=== PATIENT | female | born 1995 | race African-American/Black ===

== ENCOUNTER 2016-09-05 05:05 | Inpatient (IN) | payer OTHER ==
[2016-09-05] MEDS ORDERED: LACTATED RINGERS SOLUTION 1,000 ML IV STA (06:00)
[2016-09-05] MEDS ORDERED: DEXTROSE 5%-LACTATED RINGERS 1,000 ML IV ONE (06:44)
[2016-09-05 07:03] LABS: BASOPHIL 0.1 % (0-2.0); EOSINOPHIL 0.6 % (0-4.5); MCH 32.4 pg (25.7-33.7); MCHC 33.1 g/dl (32.0-36.0); MEAN CELL VOLUME 97.9 fl (80-96); MEAN PLT VOLUME 10.6 fl (7.5-11.1); NEUTROPHILS 65.6 % (42.8-82.8); PLATELET COUNT 127 K/MM3 (134-434); RDW 14.2 % (11.6-15.6); WHITE BLOOD COUNT 7.3 K/mm3 (4.0-10.0)
[2016-09-05 07:16] LABS: INR 0.95 (0.82-1.09); PROTHROMBIN TIME (PATIENT) 10.4 SEC (9.98-11.88)
--- NOTE | 2016-09-05 07:32 | HP ---
Past Medical History - Admission Chief Complaint: Contraction pain. History of Present Illness: 20 y/o with SIUP at 39.5 weeks gestation here with complaints of labor pains since 4:30 am. Pt denies VB/LOF. +FM. uncomplicated. HIV neg , GBS neg, RPR neg, HepB neg, Rubella immune. Pt initially 1cm dilated, now 3- 4cm/90%effaced and head at -1 station. 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 Weeks Gestation by Dates: 39.5 ...EDC by Dates: 09/07/16 Heme/Onc: No: Anemia, Bleeding Disorder Infectious Disease: No: HIV, MRSA, STD's Psych: No: Anxiety, Bipolar, Depression Musculoskeletal: No: Chronic low back pain Endocrine: No: Yoni's Disease, Hyperthyroidism - Past Surgical History Past Surgical History: Yes: None Hx Myomectomy: No Hx Transabdominal Cerclage: No - Smoking History Smoking history: Never smoked Have you smoked in the past 12 months: No - Alcohol/Substance Use History of Substance Use: reports: None - Social History Usual Living Arrangement: Yes: With Significant Other ADL: Independent History of Recent Travel: No Home Medications - Allergies Allergies/Adverse Reactions: Allergies Allergy/AdvReac Type Severity Reaction Status Date / Time No Known Allergies Allergy Verified 09/05/16 06:01 - Home Medications Home Medications: Ambulatory Orders Vitamins (Sjr) - 1 tab PO DAILY 09/05/16 Review of Systems - Review of Systems Constitutional: reports: No Symptoms Eyes: reports: No Symptoms HENT: reports: No Symptoms Neck: reports: No Symptoms Cardiovascular: reports: No Symptoms Respiratory: reports: No Symptoms Gastrointestinal: reports: No Symptoms Genitourinary: reports: No Symptoms Breasts: reports: No Symptoms Reported Musculoskeletal: reports: No Symptoms Integumentary: reports: No Symptoms Neurological: reports: No Symptoms Endocrine: reports: No Symptoms Hematology/Lymphatic: reports: No Symptoms Psychiatric: reports: No Symptoms Physical Exam - Maternity Vital Signs: Vital Signs Temperature 97.7 F 09/05/16 06:12 Pulse Rate 83 09/05/16 06:12 Respiratory Rate 20 09/05/16 06:12 Blood Pressure 137/80 09/05/16 06:12 O2 Sat by Pulse Oximetry (%) Constitutional: Yes: Well Nourished, No Distress, Calm Eyes: Yes: Conjunctiva Clear, EOM Intact HENT: Yes: Atraumatic, Normocephalic Neck: Yes: Supple, Trachea Midline Cardiovascular: Yes: Regular Rate and Rhythm Lungs: Clear to auscultation - Abdominal Exam/OB Number of Fetuses: Single Presentation: Vertex Contractions: Yes Regularity: Regular Intensity: Mod/Strong Monitor Mode: External Heart Rate (range): 160 Category: I Accelerations: Uniform Decelerations: None - Vaginal Exam/OB Vaginal Bleediing: No Dilatation (cm): 3.5 Effacement (%): 90 Amniotic Membrane Status: Intact Presentation: Vertex/Position Station: -1 - Physical Exam Extremities: Yes: WNL Edema: No Psychiatric: Yes: Alert, Oriented Hemorrhage Risk Assessment - Risk Factors Medium Risk Factors: Yes: None High Risk Factors: Yes: None Risk Score: 1 Risk Level: Medium Risk Problem List - Problems (1) Active labor at term Code(s): [id number] - (2) Term Code(s): Z34.80 - ENCOUNTER FOR SUPRVSN OF NORMAL , UNSP TRIMESTER Assessment/Plan 20 y/o with SIUP at 39.5 weeks, in active labor - AFVSS - FHTS cat 1 - active labor, pt desires pain medication - for epidural - expectant management - to start pitocin if contrations space - GBS negative
[2016-09-05 07:41] LABS: CALCIUM 8.8 mg/dL (8.5-10.1); CREATININE 0.7 mg/dL (0.55-1.02)
[2016-09-05 08:01] VITALS: BMI 25.0
[2016-09-05] MEDS ORDERED: FENTANYL/BUPIVACAINE/NS/PF - PCEA - 50 ML DISP.SYRIN EP SCH (08:15)
[2016-09-05] MEDS ORDERED: LACTATED RINGERS SOLUTION 1,000 ML IV SCH (08:15)
[2016-09-05] MEDS ORDERED: OXYTOCIN 15 UNITS/ LR 250 ML 250 ML IV SCH (09:15)
--- NOTE | 2016-09-05 09:26 | PN ---
Ante-Partal Exam - Subjective Subjective: Pt tolerating contractions, feels much improved with epidural. Vital Signs: Vital Signs Temperature 98.0 F 09/05/16 08:00 Pulse Rate 75 09/05/16 08:15 Respiratory Rate 15 09/05/16 08:15 Blood Pressure 117/63 09/05/16 08:15 O2 Sat by Pulse Oximetry (%) 100 09/05/16 08:15 Bleeding: No Headache: No Visual changes: No Right upper quadrant pain: No Pain (scale 1-10): 3 - Contractions Contractions: Yes Regularity: Regular Intensity: Mod/Strong Monitor Mode: External - Exam during Labor Heart Rate: 155 Variability: Moderate Category: I Monitor Accelerations: Absent Monitor Decelerations: None Exam: Vaginal Dilatation (cm): 6 Effacement (%): 90 Amniotic Membrane Status: Ruptured (AROM for light meconium) Amniotic Fluid: Meconium Stained Meconium Staining: Light Presentation: Vertex Station: 0 - Intrapartum Hemorrhage Risk Medium Risk Factors: None High Risk Factors: None Risk Score: 0 Risk Level: Low Risk - Assessment/Plan Assessment/Plan: 20 y/o with SIUP at 39.5, in labor - FHTS cat 1 - labor, s/p epidural and now s/p AROM, to augment with pitocin if contractions space - GBS negative - anticipate
--- NOTE | 2016-09-05 10:48 | PN ---
Ante-Partal Exam - Subjective Vital Signs: Vital Signs Temperature 98.0 F 09/05/16 08:00 Pulse Rate 78 09/05/16 10:30 Respiratory Rate 14 09/05/16 10:30 Blood Pressure 118/60 09/05/16 10:30 O2 Sat by Pulse Oximetry (%) 99 09/05/16 10:30 Bleeding: Yes Bleeding Description: Mild Headache: No Visual changes: No Right upper quadrant pain: No Pain (scale 1-10): 2 - Contractions Contractions: Yes Regularity: Regular Intensity: Strong Monitor Mode: External - Exam during Labor Variability: Moderate Category: II Monitor Accelerations: Present Monitor Decelerations: Variable Exam: Vaginal Dilatation (cm): 9 Effacement (%): 100 Amniotic Membrane Status: Ruptured Presentation: Vertex Station: 0 - Assessment/Plan Assessment/Plan: Pt doing well, feeling better s/p epidural top off. FHTS cat 2 with variable decelerations. Pt to begin pushing in 30 minutes. anticipate
--- NOTE | 2016-09-05 11:30 | PN ---
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 Gender: Male Position: Left, OA - 1 Minute Total Score: 9 5 Minutes Total Score: 9 - Feeding Plan Initial Plan: Exclusive throughout hospitalization Remarks - Remarks Remarks: normal of baby boy from MIHIR position loose nuchal cord noted - reduced at perineum anterior shoulder (right) delivered with ease along with remainder of 3VC noted, clamped and cut baby assessed by nursery staff, Apgars 9/9 - mouth and nose bulb suctioned after delivery 1st degree laceration noted - repaired with 2-0 chromic suture in usual fashion placenta delivered spontaneously and in tact pitocin hung after delivery of placenta sponge and needle count correct after delivery mom stable baby to well baby nursery
[2016-09-05] MEDS ORDERED: BENZOCAINE 20% 57 GM BOTTLE TP PRN (11:31)
[2016-09-05] MEDS ORDERED: BISACODYL 10 MG SUPP.RECT RC PRN (11:31)
[2016-09-05] MEDS ORDERED: WITCH HAZEL 50% (TUCKS) 40 PAD/JAR PAD TP PRN (11:31)
[2016-09-05] MEDS ORDERED: oxyCODONE HCL 5 MG TABLET PO PRN (11:31)
[2016-09-05] MEDS ORDERED: METHYLERGONOVINE MALEATE 0.2 MG/1 ML AMP IM PRN (11:31)
[2016-09-05] MEDS ORDERED: BENZOCAINE 28 GM HEMORRHOIDAL OINTMENT TP PRN (11:31)
[2016-09-05] MEDS ORDERED: OXYTOCIN 20 UNITS in 0.9% NS 1,000 ML IV SCH (11:45)
[2016-09-05] MEDS ORDERED: TUBERCULIN PPD 5 TU/0.1ML SYRINGE (IN PATIENT USE ONLY) ID ONE (13:30)
[2016-09-05] MEDS: IBUPROFEN 600 MG TABLET (FP) PO PRN ×2 (15:27→21:32)
[2016-09-05] MEDS ORDERED: DIPHTH,PERTUSS(ACELL),TET 0.5 ML DISP.SYRIN IM ONE (21:15)
[2016-09-05] MEDS: ACETAMINOPHEN 325 MG TABLET (FP) PO PRN (21:32)
[2016-09-06] MEDS: ACETAMINOPHEN 325 MG TABLET (FP) PO PRN ×2 (02:44→19:14)
[2016-09-06] MEDS: IBUPROFEN 600 MG TABLET (FP) PO PRN ×2 (02:46→19:12)
[2016-09-06 07:42] LABS: BASOPHIL 0.3 % (0-2.0); EOSINOPHIL 0.3 % (0-4.5); MCH 32.5 pg (25.7-33.7); MCHC 33.3 g/dl (32.0-36.0); MEAN CELL VOLUME 97.5 fl (80-96); NEUTROPHILS 72.5 % (42.8-82.8); PLATELET COUNT 119 K/MM3 (134-434); WHITE BLOOD COUNT 12.1 K/mm3 (4.0-10.0)
[2016-09-06] MEDS: PRENATAL VITAMINS W/ FOLIC ACID TABLET (FP) PO SCH (09:07)
--- NOTE | 2016-09-06 11:07 | PN ---
Post Progress Note - Subjective Subjective: Pt seen/evaluated and doing well. Pain controlled, tolerating diet. No n/v. Ambulating, voiding and passing flatus. No CP/SOB/F/C/TAMEZ. No complaints. VB moderate to minimal. Type of Delivery: Vital Signs: Vital Signs Temperature 98.3 F 09/06/16 07:53 Pulse Rate 76 09/06/16 07:53 Respiratory Rate 20 09/06/16 07:53 Blood Pressure 111/63 09/06/16 07:53 O2 Sat by Pulse Oximetry (%) 99 09/05/16 12:15 Breast Exam: Yes: Soft Uterus: Yes: Fundus below umbilicus Incision: Yes: Sutures intact (perineal sutures in tact) Abdomen/GI: Yes: Abdomen soft, Passing flatus, Tolerating PO. No: Abdominal Distention, Tender Lochia: Yes: Rubra Lochia, amount: Small Extremities: Yes: Calves non-tender. No: Edema Perineum: Yes: Laceration Activity: Ambulating - Labs Labs: CBC WBC 12.1 K/mm3 (4.0-10.0) H D 09/06/16 06:00 RBC 3.13 M/mm3 (3.60-5.2) L 09/06/16 06:00 Hgb 10.2 GM/dL (10.7-15.3) L D 09/06/16 06:00 Hct 30.5 % (32.4-45.2) L 09/06/16 06:00 MCV 97.5 fl (80-96) H 09/06/16 06:00 MCHC 33.3 g/dl (32.0-36.0) 09/06/16 06:00 RDW 14.0 % (11.6-15.6) 09/06/16 06:00 Plt Count 119 K/MM3 (134-434) L 09/06/16 06:00 MPV 10.0 fl (7.5-11.1) 09/06/16 06:00 Neutrophils % 72.5 % (42.8-82.8) 09/06/16 06:00 Lymphocytes % 15.5 % (8-40) D 09/06/16 06:00 Monocytes % 11.4 % (3.8-10.2) H 09/06/16 06:00 Eosinophils % 0.3 % (0-4.5) 09/06/16 06:00 Basophils % 0.3 % (0-2.0) 09/06/16 06:00 Problem List - Problems (1) Active labor at term Code(s): [id number] - (2) Term Code(s): Z34.80 - ENCOUNTER FOR SUPRVSN OF NORMAL , UNSP TRIMESTER Assessment/Plan 20 y/o PPD#1 s/p normal - AFVSS - Hgb 10.2, stable - encourage ambulation, regular diet, PO pain meds - routine care
[2016-09-06] MEDS ORDERED: SENNOSIDES/DOCUSATE COMBO (SENNA PLUS) TABLET (UD) PO PRN (22:00)
[2016-09-07] MEDS: IBUPROFEN 600 MG TABLET (FP) PO PRN (04:38)
[2016-09-07] MEDS: ACETAMINOPHEN 325 MG TABLET (FP) PO PRN (04:39)
--- NOTE | 2016-09-07 08:12 | DS ---
Physical Exam-ACCESSIONER Vital Signs: Vital Signs Temperature 98.2 F 09/06/16 22:00 Pulse Rate 75 09/06/16 22:00 Respiratory Rate 20 09/06/16 22:00 Blood Pressure 109/64 09/06/16 22:00 O2 Sat by Pulse Oximetry (%) 99 09/05/16 12:15 Constitutional: Yes: Well Nourished, No Distress, Calm Eyes: Yes: Conjunctiva Clear, EOM Intact HENT: Yes: Atraumatic, Normocephalic Neck: Yes: Supple, Trachea Midline Cardiovascular: Yes: Regular Rate and Rhythm Respiratory: Yes: Regular, CTA Bilaterally Gastrointestinal: Yes: Normal Bowel Sounds, Soft. No: Tenderness External Genitalia: Yes: Normal Uterus: Yes: Normal ....Post : Yes: Uterus firm, Uterus non-tender Extremities: Yes: WNL Neurological: Yes: Alert, Oriented Psychiatric: Yes: Alert, Oriented Labs: CBC, BMP 09/06/16 06:00 09/05/16 06:00 Delivery - Delivery Vaginal Delivery: No Problems Type of Anesthesia: Epidural Episiotomy/Laceration: 1st degree EBL (cc): 300 Delivery, Single - Stages of Labor Date 1st Stage Initiatied: 09/05/16 Time 1st Stage Initiated: 03:45 Date 2nd Stage Initiated: 09/05/16 Time 2nd Stage Initiated: 10:50 Date of Delivery: 09/05/16 Time of Delivery: 11:13 Time Placenta Delivered: 11:16 Placenta: Yes: Spontaneous - Condition of 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 Patient underwent normal on 09/05. Patient had unremarkable post recovery and was discharged home in stable condition on post day 2. Condition: Good - Instructions Diet, Activity, Other Instructions: Physical activity Resume your normal everyday activity as tolerated no heavy lifting or strenuous exercise until seen by your doctor. You may walk unlimited amounts and climb stairs. You may resume driving the car when you feel safe and comfortable behind the wheel. No sexual activity as instructed for 6 weeks . Wound care If you have stitches, they will dissolve on their own. Do not attempt to remove them. . Diet There are no dietary restrictions. Eat healthy, high-fiber foods. Drink 6 to 8 glasses of liquid each day. This will assist in keeping your bowels regular. Pain management You may take Tylenol Ibuprofen over the counter for pain. Call MD for any of the following: Severe pain not relieved by medication Fever of 101 or higher Excessive bleeding or drainage on dressing Inability to urinate Referrals: Jennie Bolton DO [Staff Physician] - (6 weeks) Disposition: HOME - Home Medications Comprehensive Discharge Medication List: Ambulatory Orders Vitamins (Sjr) - 1 tab PO DAILY 09/05/16
[2016-09-07] MEDS: PRENATAL VITAMINS W/ FOLIC ACID TABLET (FP) PO SCH (09:30)
[2016-09-07 11:16] VITALS: BP 112/61; PULSE 72; TEMP 98.7
== END 2016-09-07 12:02 | disposition home or self-care (01) | DRG 560 ==
LOC: JDEL 05:05 → JLDR 07:00 → J3W 11:54
PROVIDERS: ADMIT Obstetrics & Gynecology; ATTEND Obstetrics & Gynecology
PROC: 0HQ9XZZ Repair Perineum Skin, External Approach (ICD-10-PCS; principal; 2016-09-05)
PROC: 10E0XZZ Delivery of Products of Conception, External Approach (ICD-10-PCS; 2016-09-05)
DX: O70.0 First degree perineal laceration during delivery (principal); Z3A.39 39 weeks gestation of pregnancy; Z37.0 Single live birth
CPT/HCPCS: 36415; 59409; 80048; 85025; 85610; 85730; 86593; 86850; 86900; 86901; 90715

== ENCOUNTER 2019-04-30 18:19 | Emergency (ER) | payer OTHER ==
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
[2019-04-30 18:33] VITALS: BP 118/61; PULSE 69; TEMP 98; BMI 21.9
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
[2019-04-30 21:18] LABS: BASO % 0.5 % (0-2.0); EOS % 1.1 % (0-4.5); HEMATOCRIT 36.8 % (32.4-45.2); HEMOGLOBIN 12.4 GM/dL (10.7-15.3); LYMPH % 53.9 % (8-40); MCH 32.3 pg (25.7-33.7); MCHC 33.7 g/dl (32.0-36.0); MEAN CELL VOLUME 95.8 fl (80-96); MEAN PLT VOLUME 9.3 fl (7.5-11.1); MONO % 9.7 % (3.8-10.2); NEUT % 34.8 % (42.8-82.8); PLATELET COUNT 206 K/MM3 (134-434); RBC 3.84 M/mm3 (3.60-5.2); RDW 12.8 % (11.6-15.6); WHITE BLOOD COUNT 5.9 K/mm3 (4.0-10.0)
[2019-04-30 21:37] LABS: ALBUMIN 3.8 g/dl (3.4-5.0); BILIRUBIN,TOTAL 0.7 mg/dL (0.2-1); BLOOD UREA NITROGEN 15.3 mg/dL (7-18); CALCIUM 9.4 mg/dL (8.5-10.1); POTASSIUM 4.2 mmol/L (3.5-5.1); TOT PROT 7.6 g/dl (6.4-8.2)
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
== END 2019-05-01 00:18 | disposition home or self-care (01) ==
LOC: JERFT 18:19
DX: S16.1XXA Strain of muscle, fascia and tendon at neck level, initial encounter (principal); V49.49XA Driver injured in collision with other motor vehicles in traffic accident, initial encounter; Y92.414 Local residential or business street as the place of occurrence of the external cause; Y93.89 Activity, other specified; Y99.8 Other external cause status; N83.202 Unspecified ovarian cyst, left side
CPT/HCPCS: 36415; 74177-TC; 80053; 84703; 85025; 99282-25

== ENCOUNTER 2019-07-11 19:16 | Emergency (ER) | payer OTHER ==
[2019-07-11 19:41] VITALS: BP 131/81; PULSE 66; TEMP 98.4; BMI 23.1
[2019-07-11] MEDS ORDERED: ACETAMINOPHEN 1000 MG/100 ML VIAL (NON FORMULARY) IVPB ONE (19:45)
[2019-07-11] MEDS ORDERED: METOCLOPRAMIDE HCL INJECTION 10 MG/2 ML VIAL IVPB ONE (19:45)
[2019-07-11] MEDS ORDERED: SODIUM CHLORIDE 1,000 ML IV STA (19:45)
--- NOTE | 2019-07-11 19:46 | PDOC ---
Rapid Medical Evaluation Time Seen by Provider: 07/11/19 19:39 Medical Evaluation: Allergies Allergy/AdvReac Type Severity Reaction Status Date / Time No Known Allergies Allergy Verified 04/30/19 18:33 07/11/19 19:39 Pt presents to the ER for one week of headache, cough, and nausea. She states this isn't like her usual headache pattern. She state that today the pain got so bad she almost passed out. She has been taking home meds with little relief of her headache. Exam: lungs CTAB, pt neurologically intact. Orders: Labs, head CT, CXR, meds Pt to proceed to the ER for further evaluation Discharge Disposition - Diagnosis Headache - Referrals - Patient Instructions - Post Discharge Activity
[2019-07-11] MEDS ORDERED: METOCLOPRAMIDE HCL INJECTION 10 MG/2 ML VIAL ONE (21:50)
[2019-07-11] MEDS ORDERED: ACETAMINOPHEN INJECTION 100 ML IVPB ONE (21:50)
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
[2019-07-11 22:23] LABS: BASO % 0.2 % (0-2.0); EOS % 1.3 % (0-4.5); HEMATOCRIT 35.4 % (32.4-45.2); HEMOGLOBIN 12.2 GM/dL (10.7-15.3); LYMPH % 50.8 % (8-40); MCH 32.7 pg (25.7-33.7); MCHC 34.4 g/dl (32.0-36.0); MEAN PLT VOLUME 9.4 fl (7.5-11.1); MONO % 12.8 % (3.8-10.2); NEUT % 34.9 % (42.8-82.8); PLATELET COUNT 175 K/MM3 (134-434); RBC 3.73 M/mm3 (3.60-5.2); RDW 13.1 % (11.6-15.6); WHITE BLOOD COUNT 4.6 K/mm3 (4.0-10.0)
[2019-07-11 22:53] LABS: ALBUMIN 3.5 g/dl (3.4-5.0); BILIRUBIN,TOTAL 0.2 mg/dL (0.2-1); BLOOD UREA NITROGEN 8.8 mg/dL (7-18); CALCIUM 8.8 mg/dL (8.5-10.1); CREATININE 0.7 mg/dL (0.55-1.3); POTASSIUM 4.5 mmol/L (3.5-5.1); TOT PROT 7.1 g/dl (6.4-8.2)
[2019-07-11 23:16] LABS: EPI CELLS 9.6 /HPF (0-5/HPF); HYALINE CASTS 3 /lpf (0-8); URINE APPEARANCE CLOUDY; URINE BACTERIA 556.3 /hpf (NEGATIVE); URINE BILIRUBIN NEGATIVE (NEGATIVE); URINE COLOR YELLOW; URINE GLUCOSE (UA) NEGATIVE (NEGATIVE); URINE KETONE NEGATIVE (NEGATIVE); URINE LEUK ESTERASE 1+ (NEGATIVE); URINE NITRITE NEGATIVE (NEGATIVE); URINE PROTEIN NEGATIVE (NEGATIVE); URINE RBC 5 /hpf (0-4); URINE WBC 22 /hpf (0-5)
[2019-07-12] MEDS ORDERED: CEPHALEXIN MONOHYDRATE 500 MG CAPSULE (UD) PO ONE
[2019-07-12] MEDS ORDERED: CEPHALEXIN MONOHYDRATE 500 MG CAPSULE (UD) ONE (00:07)
== END 2019-07-12 00:11 | disposition home or self-care (01) ==
LOC: JER 19:16
PROC: 3E033GC Introduction of Other Therapeutic Substance into Peripheral Vein, Percutaneous Approach (ICD-10-PCS; principal; 2019-07-11)
PROC: 3E033GC Introduction of Other Therapeutic Substance into Peripheral Vein, Percutaneous Approach (ICD-10-PCS; 2019-07-11)
PROC: 3E033NZ Introduction of Analgesics, Hypnotics, Sedatives into Peripheral Vein, Percutaneous Approach (ICD-10-PCS; 2019-07-11)
DX: N39.0 Urinary tract infection, site not specified (principal); R51 Headache
CPT/HCPCS: 36415; 70450-TC; 80053; 81003; 84703; 85025; 99282-25; J0131; J7030

== ENCOUNTER 2024-04-04 10:39 | Inpatient (IN) | payer OTHER ==
[2024-04-04 11:36] LABS: INR 0.95 (0.83-1.09); PROTHROMBIN TIME (PATIENT) 10.8 SEC (9.7-13.0)
[2024-04-04 11:37] LABS: BASO % 0.1 % (0-2.0); EOS % 0.4 % (0-4.5); HEMATOCRIT 29.4 % (32.4-45.2); HEMOGLOBIN 9.6 GM/dL (10.7-15.3); LYMPH % 24.5 % (8-40); MCH 28.7 pg (25.7-33.7); MCHC 32.7 g/dl (32.0-36.0); MEAN CELL VOLUME 87.8 fl (80-96); MEAN PLT VOLUME 9.1 fl (7.5-11.1); MONO % 12.3 % (3.8-10.2); NEUT % 62.7 % (42.8-82.8); PLATELET COUNT 182 10^3/uL (134-434); RBC 3.35 M/mm3 (3.60-5.2); RDW 14.9 % (11.6-15.6); WHITE BLOOD COUNT 6.2 K/mm3 (4.0-10.0)
[2024-04-04 11:38] LABS: ACTIVATED PTT 26.8 SECONDS (25.2-36.5); RETICULOCYTES 2.14 % (0.5-1.5)
[2024-04-04 11:45] LABS: CHLORIDE 106 mmol/L (98-107); POTASSIUM 3.8 mmol/L (3.5-5.1); SODIUM 138 mmol/L (136-145)
[2024-04-04 11:46] LABS: CALCIUM 9.3 mg/dL (8.5-10.1)
[2024-04-04 11:47] LABS: ANION GAP 8 mmol/L (4-13); BLOOD UREA NITROGEN 4.9 mg/dL (7-18); CO2 23 mmol/L (21-32); GLUCOSE,RANDOM 102 mg/dL (74-106)
[2024-04-04 11:49] LABS: URIC ACID 3.3 mg/dL (2.6-7.2)
[2024-04-04 11:50] LABS: CREATININE 0.6 mg/dL (0.55-1.3)
[2024-04-04 11:51] LABS: SGOT/AST 32 U/L (15-37); SGPT/ALT 20 U/L (13-61)
[2024-04-04 11:55] LABS: GAMMA GLUTAMYL TRANSPEPTIDASE 12 U/L (5-85)
[2024-04-04] MEDS: OXYTOCIN 30 UNITS in 0.9% NS 30 UNIT/500 ML INFUS.BAG IVPB SCH (12:00)
[2024-04-04 12:12] VITALS: BMI 31.6
[2024-04-04 12:53] LABS: HIV INTERPRETATION NEGATIVE (NEGATIVE)
[2024-04-04] MEDS ORDERED: BUTORPHANOL TARTRATE 2 MG/ML VIAL IVPB PRN (12:58)
[2024-04-04 13:38] LABS: EPI CELLS >36 /uL (0-25.1); HYALINE CASTS 0 /uL (0-3.1); PH,URINE 7.5 (5.0-8.0); URINE APPEARANCE CLEAR; URINE BACTERIA 3154 /uL (0-1359); URINE BILIRUBIN NEGATIVE (NEGATIVE); URINE COLOR YELLOW; URINE GLUCOSE (UA) NEGATIVE (NEGATIVE); URINE KETONE NEGATIVE (NEGATIVE); URINE LEUK ESTERASE TRACE (NEGATIVE); URINE NITRITE NEGATIVE (NEGATIVE); URINE PROTEIN NEGATIVE (NEGATIVE); URINE RBC 4 /uL (0-23.9); URINE UROBILINOGEN 0.2 mg/dL (0.2-1.0); URINE WBC 66 /uL (0-25.8)
[2024-04-04] MEDS ORDERED: OXYTOCIN 30 UNITS in 0.9% NS 30 UNIT/500 ML INFUS.BAG IVPB ONE (14:07)
[2024-04-04] MEDS ORDERED: FENTANYL/BUPIVACAINE/NS/PF - PCEA - 50 ML DISP.SYRIN EP ONE ×3 (14:42→22:39)
[2024-04-04] MEDS: FENTANYL/BUPIVACAINE/NS/PF - PCEA - 50 ML DISP.SYRIN EP SCH (15:40)
[2024-04-04] MEDS ORDERED: NALOXONE HCL 0.4 MG/ML VIAL IVPUSH PRN (16:00)
[2024-04-04 18:17] VITALS: RESP 18
[2024-04-04] MEDS: LACTATED RINGERS SOLUTION 1,000 ML IV SCH (19:50)
[2024-04-04] MEDS ORDERED: FENTANYL CITRATE/PF 50 MCG/ML VIAL ONE (23:13)
[2024-04-04] MEDS ORDERED: BUPIVACAINE HCL/PF 0.25% (2.5MG/ML) 10 ML VIAL ONE (23:13)
[2024-04-05] MEDS ORDERED: LIDOCAINE HCL 1% PRESERVATIVE FREE - 30ML VIAL ONE (01:08)
[2024-04-05] MEDS ORDERED: OXYTOCIN 20 UNITS in 0.9% NS 20 UNIT/1,000 ML INFUS.BAG IV ONE (01:08)
[2024-04-05] MEDS ORDERED: ACETAMINOPHEN 325 MG TABLET (FP) PO PRN (01:46)
[2024-04-05] MEDS ORDERED: METHYLERGONOVINE MALEATE 0.2 MG/1 ML AMP IM PRN (01:46)
[2024-04-05] MEDS ORDERED: BISACODYL 10 MG SUPP.RECT RC PRN (01:46)
[2024-04-05] MEDS ORDERED: oxyCODONE HCL 5 MG TABLET PO PRN (01:46)
[2024-04-05] MEDS ORDERED: OXYTOCIN 20 UNITS in 0.9% NS 20 UNIT/1,000 ML INFUS.BAG IV SCH (02:00)
[2024-04-05 02:41] LABS: CORD BASE EXCESS -4.2 mmol/L (0-2); CORD HCO3 22.6 mmHg (20-29); CORD PCO2 47.1 mmHg (30-78); CORD pH 7.298 (7.14-7.44)
[2024-04-05] MEDS ORDERED: IBUPROFEN 600 MG TABLET (FP) PO ONE (05:00)
[2024-04-05] MEDS: IBUPROFEN 600 MG TABLET (FP) PO PRN (05:03)
[2024-04-05] MEDS: PROMETHAZINE HCL 25 MG/1 ML VIAL IVPB ONE (05:41)
[2024-04-05] MEDS: ELECTROLYTE-148 SOLN 1,000 ML IV SCH (05:41)
[2024-04-05] MEDS: FERROUS SO4 325 MG TABLET (FP) PO SCH (08:48)
[2024-04-05] MEDS ORDERED: FLU VACCINE (FLULAVAL) PF 45 MCG/0.5 ML SYRINGE 2024-2025 IM ONE (10:00)
[2024-04-05] MEDS: PRENATAL VITAMINS W/ FOLIC ACID TABLET (FP) PO SCH (10:47)
[2024-04-05] MEDS: BENZOCAINE 20% 57 GM BOTTLE TP PRN (12:52)
[2024-04-05] MEDS: WITCH HAZEL 50% (TUCKS) 40 PAD/JAR PAD TP PRN (12:53)
[2024-04-05] MEDS: BENZOCAINE 28 GM HEMORRHOIDAL OINTMENT TP PRN (12:53)
[2024-04-06 08:19] LABS: BASO % 0.4 % (0-2.0); EOS % 0.9 % (0-4.5); HEMATOCRIT 29.5 % (32.4-45.2); HEMOGLOBIN 9.6 GM/dL (10.7-15.3); LYMPH % 33.6 % (8-40); MCH 28.9 pg (25.7-33.7); MCHC 32.6 g/dl (32.0-36.0); MEAN CELL VOLUME 88.9 fl (80-96); MONO % 12.5 % (3.8-10.2); NEUT % 52.6 % (42.8-82.8); PLATELET COUNT 188 10^3/uL (134-434); RBC 3.31 M/mm3 (3.60-5.2); RDW 15.3 % (11.6-15.6); WHITE BLOOD COUNT 7.2 K/mm3 (4.0-10.0)
[2024-04-06] MEDS: SENNOSIDES/DOCUSATE COMBO (SENNA PLUS) TABLET (UD) PO PRN (22:36)
[2024-04-06] MEDS: FLU VACCINE (FLULAVAL) PF 45 MCG/0.5 ML SYRINGE 2024-2025 IM ONE (22:37)
[2024-04-07 00:58] VITALS: PULSE 67
[2024-04-07 10:23] VITALS: BP 115/65; TEMP 98
== END 2024-04-07 10:55 | disposition home or self-care (01) | DRG 807 ==
LOC: JLDR 10:39 → J3W 04-05 05:06
PROVIDERS: ADMIT Obstetrics & Gynecology; ATTEND Obstetrics & Gynecology
PROC: 10E0XZZ Delivery of Products of Conception, External Approach (ICD-10-PCS; principal; 2024-04-05)
DX: O13.4 Gestational [pregnancy-induced] hypertension without significant proteinuria, complicating childbirth (principal); Z37.0 Single live birth; Z3A.39 39 weeks gestation of pregnancy
CPT/HCPCS: 36415; 36600; 59409; 80048; 81003; 82570; 82803; 82977; 83010; 84156; 84450; 84460; 84550; 85025; 85032; 85045; 85610; 85730; 86780; 86803; 86850; 86900; 86901; 87340; 87389